=== PATIENT | female | born 1950 | race Caucasian/White ===

== ENCOUNTER → 2023-07-12 11:34 | Outpatient (REF) | payer OTHER, SELFPAY | LOC: HWRAD 11:34 | PROVIDERS: ATTENDING PHYSICIAN Family Medicine | DX: R07.1 Chest pain on breathing (principal); R53.82 Chronic fatigue, unspecified; R19.7 Diarrhea, unspecified | CPT/HCPCS: 74177; Q9967 ==

== ENCOUNTER 2023-07-20 12:28 | Emergency (ER) | payer OTHER, SELFPAY ==
[2023-07-20] VITALS (17 sets, daily range): BP systolic 115–158; BP diastolic 70–99; BMI 31.2
[2023-07-20 13:01] LABS: % Basophils 0.5 % (0-2); % Eosinophils 0.7 % (0-6); % Immature Granulocytes 0.3 % (0-0.5); % Lymphocytes 20.1 % (20.5-51.1); % Monocytes 6.8 % (1.7-9.3); % Neutrophils 71.6 % (42.2-75.2); Absolute Eosinophils 0.1 10^3/uL (0-0.7); Absolute Lymphocytes 1.5 10^3/uL (1.2-3.4); Absolute Monocytes 0.5 10^3/uL (0.1-0.6); Absolute Neutrophils 5.4 10^3/uL (1.4-6.5); Hematocrit 45.7 % (37.0-47.0); Hemoglobin 15.6 g/dL (12.0-16.0); Mean Corp Hgb Conc. 34.1 g/dL (33.0-37.0); Mean Corpuscular Hgb 28.5 pg (27.0-31.0); Mean Corpuscular Volume 83.5 fL (81.0-99.0); Mean Platelet Volume 11.2 fL (7.4-10.4); Nucleated Red Blood Cells % 0 %; Platelet Count 245 10^3/uL (130-400); Red Blood Cell Count 5.47 10^6/uL (4.20-5.40); Red Cell Dist. Width 13.1 % (11.5-14.5); White Blood Cell Count 7.5 10^3/uL (4.8-10.8)
[2023-07-20 13:12] LABS: INR 1.05; PT 13.7 Sec (11.4-14.6)
[2023-07-20 13:18] LABS: ALT (SGPT) 22 U/L (0-35); AST (SGOT) 33 U/L (14-36); Albumin 5.3 g/dl (3.5-5.0); Alkaline Phosphatase 98 U/L (38-126); Blood Urea Nitrogen 12 mg/dl (7-17); Calcium 9.9 mg/dl (8.4-10.2); Carbon Dioxide 25 mmol/L (22-30); Chloride 104 mmol/L (98-107); Glucose 122 mg/dl (70-99); Potassium 3.6 mmol/L (3.5-5.1); Sodium 138 mmol/L (135-145); Total Bilirubin 0.8 mg/dl (0.2-1.3); eGFR > 60.00
[2023-07-20 13:28] LABS: Troponin I < 0.012 ng/ml
[2023-07-20] MEDS: NSS 1000 IV (14:37)
--- NOTE | 2023-07-20 14:50 | ED.GENMED ---
History of Present Illness
<Mayda Prather PA-C - Last Filed: 07/20/23 18:15>
General
Chief Complaint: Heart Rate Problem
Source: patient
Exam Limitations: none
Time Seen by Provider: 07/20/23 14:28
Nursing documentation reviewed up to this point in time: agreed with
Travel History
Have you had any contact with someone who has COVID-19?: No
Do you have any symptoms of coronavirus? Fever > 100 degrees, chills, cough, shortness of breath, sore throat, loss of taste or smell, muscle aches, or headache?: No
History of Present Illness
History of Present Illness:
72 y/o F with h/o htn ,hld [place]
here with elevated HR/palpitatoins that started at 1130 am when she was outside with her dog. she has had diarreha x 2 weeks with fatigue and diarrhea
she had outpatient labs and ct scan which showed some nonspecific findings
her c diff came back positive and her PCP called her in vancomycin. she didn't get to take it yet.
she says her diarrhea, though still present, has not been as severe this week as last week
she does have fatigue but not significant
no cp, sob
she has a stable small brain AVM incidentaly
never had cardiac dysrhythmia.
HAS H/O GRAVES DISEASE AND HAD IODINE TREATMENT TO THYROID AND NOW IS ON SYNTHROID
Past History
<Mayda Prather PA-C - Last Filed: 07/20/23 18:15>
Past History
ED Past Medical History: Fibromyalgia, HTN, Hypercholesterolemia and Hypothyroidism
ED Past Surgical History: Cholecystectomy, Gynecological, Orthopedic and Tonsilectomy
Social History
Tobacco: Former smoker
Alcohol: Occasional
Drug: None
Personal:
Living: with family
Employment: Employed
Review of Systems
<Mayda Prather PA-C - Last Filed: 07/20/23 18:15>
Review of Systems
Allergies reviewed?: Yes
All Other Systems: Not applicable
Phy Exam
<Mayda Prather PA-C - Last Filed: 07/20/23 18:15>
Physical Exam
Physical Exam:
GENERAL: Alert , in no apparent distress
EYE: pupils equal and reactive
NECK: Supple
ENT: o/p clr, mmm.
CARDIAC:tachycardic irregular, no murmur
LUNGS: Clear breath sounds bilaterally, no acute respiratory distress, no wheezes/rales/rhonchi
ABDOMEN: Soft, without focal tenderness, no r/g, no cvat, normal bowel sounds
NEUROLOGICAL: Alert and oriented, no focal neuro deficits
SKIN: Warm and dry, skin intact.
MUSCULOSKELETAL: No edema, well perfused. neg nino's sign
PSYCH: Normal and appropriate interaction.
Scores
<Mayda Prather PA-C - Last Filed: 07/20/23 18:15>
[id number] Score for Afib Stroke Risk
Age in Years (65=0, 65-74=1, >/=75=2): 65-74
Sex (Female=+1): Female
Congestive Heart Failure History (Yes=+1): No
Hypertension History (Yes=+1): Yes
Stroke/TIA/Thromboembolism History (Yes=+2): No
Vascular Disease History (Yes=+1): No
Diabetes Mellitus (Yes=+1): No
Score: 3
Anticoagulation Recommendations: Recommend anticoagulation (as validated in nonvalvular fib)
<Stuart Zhang MD - Last Filed: 07/20/23 17:12>
[id number] Score for Afib Stroke Risk
Score: 3
Anticoagulation Recommendations: Recommend anticoagulation (as validated in nonvalvular fib)
Course
<Mayda Prather PA-C - Last Filed: 07/20/23 18:15>
Orders/Labs/Results
Orders:
Orders
07/20/23 12:44
Electrocardiogram (*1) Urgent
Reason for Study: Tachycardia
EKG- Treatment ONCE
07/20/23 12:50
Complete Blood Count/With Diff Urgent
Comprehensive Metabolic Panel Urgent
Free T4 Urgent
Prothrombin Time Urgent
TSH Reflex To Free T4 Urgent
Comment: ADD ON
Troponin I Urgent
07/20/23 14:36
0.9% Sodium Chloride 1000 ml [Nss] 1,000 ml IV BOLUS
07/20/23 14:43
Diltiazem HCl [Cardizem] 15 mg IV NOW STA
07/20/23 14:54
Vancomycin HCl [Firvanq] 125 mg PO NOW STA
07/20/23 15:30
Add On- LAB Urgent
Tests Added?: tsh reflex t4
07/20/23 16:26
Propofol [Diprivan] 20 ml .ROUTE .STK-MED
07/20/23 16:28
ASA Classification Routine
Propofol [Diprivan] 40 mg IV NOW STA
07/20/23 16:53
EKG [Electrocardiogram (*1)] Urgent
Reason for Study: Other
Other Reason for Exam: cardioversion
07/20/23 16:54
EKG- Treatment ONCE
07/20/23 18:04
Apixaban [Eliquis] 5 mg PO NOW STA
Abnormal Lab Results
07/20/23
12:50
RBC 5.47 H 10^6/uL
(4.20-5.40)
MPV 11.2 H fL
(7.4-10.4)
Lymphocytes % 20.1 L %
(20.5-51.1)
Glucose 122 H mg/dl
(70-99)
Albumin 5.3 H g/dl
(3.5-5.0)
TSH (Reflex) 0.12 L uIU/ml
(0.47-4.68)
07/20/23 12:50
07/20/23 12:50
Vital Signs
Initial and Last Documented VS:
Initial Vital Signs
Temp Pulse Resp BP Pulse Ox
98.7 F 144 18 147/95 99
07/20/23 12:37 07/20/23 12:37 07/20/23 12:37 07/20/23 12:37 07/20/23 12:37
Last Documented Vital Signs
Temp Pulse Resp BP Pulse Ox
98.3 F 74 20 134/76 96
07/20/23 17:25 07/20/23 17:25 07/20/23 17:25 07/20/23 17:25 07/20/23 17:25
<Stuart Zhang MD - Last Filed: 07/20/23 17:12>
Orders/Labs/Results
Orders:
Orders
07/20/23 12:44
Electrocardiogram (*1) Urgent
Reason for Study: Tachycardia
EKG- Treatment ONCE
07/20/23 12:50
Complete Blood Count/With Diff Urgent
Comprehensive Metabolic Panel Urgent
Free T4 Urgent
Prothrombin Time Urgent
TSH Reflex To Free T4 Urgent
Comment: ADD ON
Troponin I Urgent
07/20/23 14:36
0.9% Sodium Chloride 1000 ml [Nss] 1,000 ml IV BOLUS
07/20/23 14:43
Diltiazem HCl [Cardizem] 15 mg IV NOW STA
07/20/23 14:54
Vancomycin HCl [Firvanq] 125 mg PO NOW STA
07/20/23 15:30
Add On- LAB Urgent
Tests Added?: tsh reflex t4
07/20/23 16:26
Propofol [Diprivan] 20 ml .ROUTE .STK-MED
07/20/23 16:28
ASA Classification Routine
Propofol [Diprivan] 40 mg IV NOW STA
07/20/23 16:53
EKG [Electrocardiogram (*1)] Urgent
Reason for Study: Other
Other Reason for Exam: cardioversion
07/20/23 16:54
EKG- Treatment ONCE
07/20/23 18:04
Apixaban [Eliquis] 5 mg PO NOW STA
Abnormal Lab Results
07/20/23
12:50
RBC 5.47 H 10^6/uL
(4.20-5.40)
MPV 11.2 H fL
(7.4-10.4)
Lymphocytes % 20.1 L %
(20.5-51.1)
Glucose 122 H mg/dl
(70-99)
Albumin 5.3 H g/dl
(3.5-5.0)
TSH (Reflex) 0.12 L uIU/ml
(0.47-4.68)
07/20/23 12:50
07/20/23 12:50
Vital Signs
Initial and Last Documented VS:
Initial Vital Signs
Temp Pulse Resp BP Pulse Ox
98.7 F 144 18 147/95 99
07/20/23 12:37 07/20/23 12:37 07/20/23 12:37 07/20/23 12:37 07/20/23 12:37
Last Documented Vital Signs
Temp Pulse Resp BP Pulse Ox
98.3 F 74 20 134/76 96
07/20/23 17:25 07/20/23 17:25 07/20/23 17:25 07/20/23 17:25 07/20/23 17:25
<Stuart Zhang MD - Last Filed: 07/20/23 17:12>
Cardioversion
Indication:: Afib
Performed by:: Stuart Zhang MD; Mayda Prather PA-C
Synchronized?: Yes
Energy Used: Other (200J/300J)
Number of attempts: 2
Successful?: Yes
Complications: transient hypoxia requiring repositioning only
ASA Risk Score: Class II
Any reaction or bad outcome to prior sedation/anesthesia?: No history of a reaction
Sedation level to be attained: moderate
Chart and allergies reviewed: No
Patient reassessed prior to sedation: Yes
Time out completed at (validating right patient & procedure): 16:54
History of difficult intubation: No
Airway free of obstruction: Yes
Patient has a gag reflex: Yes
Patient is able to open mouth: Yes
Patient has no dentures: No (has dentures, removed)
Patient has no loose teeth: Yes
Medication administered by Provider during Moderate Sedation: IV Propofol (mg)
Total dose administered: 100
Time drug administered: 16:54
Start Time: 16:54
Stop Time: 17:09
<Mayda Prather PA-C - Last Filed: 07/20/23 18:15>
MDM/Problems Addressed
Differential Diagnosis Includes:
afib with RVR, hyperthyroid,, dehydration
MDM/Problems Addressed:
72 y/o F with h/o recently diagnosed c diff diarrhea
here with rapid HR and palpiation s at 1130 am suddenly today
had no chest pain but just a litlte tiughtness
never had this before
no syncope
has not had as much volume diarrhea this past few days
didn't start oral vanc yet
on exam well appearing
stable bp
hr 140s
no crackles
nontender abdomen
ekg looks like rapid a fib no ischemia
trop neg
blood work reassuring, tsh appreciated, slightly over corrected; t4 norm[place]
pt will drop down to 125 mcg daily instead of 125 x 5 days and 137 x 2 days
discussed with cardiology
chadsvasc2 is [address] bland recommended cardioversion an danticoagulation if pt agreeeable
she was consented and dr. zhang ran the sedation and cardioversion
2 attempts and successful
pt woke from sedation withotu difficulty
tolerated well
eliquis given
d/c home with precatuions
return if needed
<Mayda Prather PA-C - Last Filed: 07/20/23 18:15>
*Critical Care Note
Total Time (30-74mins, 75-104mins- exclusive of procedures): Not Applicable
ED Attending Note
<Mayda Prather PA-C - Last Filed: 07/20/23 18:15>
-
Portions of this chart may have been created with voice recognition software.� Occasional wrong word or��sound alike� substitutions may have occurred due to the inherent limitations of voice recognition software.
<Stuart Zhang MD - Last Filed: 07/20/23 17:12>
ED Attending Note
Patient seen and examined by attending physician: Yes
ED Attending Note:
I have seen and evaluated the patient with a [id number] encounter. I have spoken to the advance practicer provider and involved in the medical history, the physical exam, medical decision making.
Evaluation and management service: agree unless noted differently below.
Results interpretation: agree unless noted differently below.
Focused HPI: 72-year-old female with history as documented presents for evaluation of palpitations; she notably has been dealing with diarrhea recently diagnosed with C. difficile and prescribed oral vancomycin yesterday. Started with racing in her
chest earlier today and symptoms have been constant since then. No chest pain, shortness of breath. EKG on arrival shows A-fib with RVR. No history of A-fib.
Physical exam: Tachycardia with irregular regular rhythm. Normotension. Mucous membranes slightly dry
Medical Decision Makin-year-old female presents for palpitations that started today in the setting of recent significant diarrhea and C. difficile infection. Tachycardic but normotensive otherwise normal vitals. She does appear slightly dry.
She was given 1 L of normal saline without significant improvement in her heart rate; she was given Cardizem with transient improvement but heart rate increased once again in the 140s. Case was discussed with cardiology and given clear onset of
symptoms despite lack of anticoagulation they felt comfortable with ED cardioversion. Discussed risk and benefits with patient and she was agreeable to the procedure. She was successfully cardioverted as documented procedure note. Will continue
to monitor after sedation and if she remains asymptomatic in sinus rhythm we will discharge with outpatient cardiology referral; patient to be started on Eliquis.
Discharge Plan
Departure
Patient Disposition: Home (Routine Discharge)
Date of Disposition: 07/20/23
Time of Disposition: 18:03
Patient with high blood pressure during this ER visit?: No
Condition: Fair
Covid-19: Not Applicable
Discharge Problem:
Atrial fibrillation with rapid ventricular response, C. difficile diarrhea
Instructions: Atrial Fibrillation (DC), Moderate Sedation in Adults (DC)
Prescriptions:
New
Eliquis 5 mg tablet
5 mg PO BID Qty: 60 0RF
No Action
levothyroxine 125 MCG tablet
125 mcg PO DAILY
citalopram 20 MG tablet
20 mg PO DAILY
amlodipine 10 MG tablet
10 mg PO DAILY
fluticasone propionate 1 SPRAY spray,suspension
1 spray intranasal DAILYPRN PRN (Reason: allergies)
rosuvastatin 10 MG tablet
10 mg PO QPM
budesonide-formoterol [Symbicort] 80-4.5 mcg/actuation Hfa Aerosol Inhaler
1 inh INHALATION PRN PRN (Reason: allergies)
mupirocin 2 % ointment
1 applic topical BID Qty: 1 0RF
aspirin 325 mg Tablet
325 mg PO DAILY Qty: 1 0RF
docusate sodium 100 mg Capsule
100 mg PO BID Qty: 1 0RF
celecoxib 200 mg Capsule
200 mg PO DAILY Qty: 14 0RF
Rx Instructions:
take with food
sennosides [senna] 8.6 mg Tablet
17.2 mg PO BID Qty: 2 0RF
dexamethasone 4 mg tablet
4 mg PO BID Qty: 6 0RF
Rx Instructions:
take with food
famotidine 20 mg tablet
20 mg PO HS Qty: 30 0RF
hydrocodone-acetaminophen 5-325 mg tablet
1 tab PO Q6H PRN (Reason: 1 tab moderate pain or 2 if severe) Qty: 30 0RF
Rx Instructions:
Dx orthopedic surgery
ongoing therapy
diazepam [Valium] 2 mg tablet
2 mg PO HS Qty: 10 0RF
Rx Instructions:
may take additional tablet if unrelieved with 1 tab
lisinopril 20 MG tablet
40 mg PO DAILY Qty: 1 0RF
Rx Instructions:
hold systolic blood pressure <130 if taking [place]
Referrals:
Don Aponte MD [Active] - Follow up in 1 week
Shana Proctor DO [Family Provider] - Follow up in 2-3 days
Activity Restrictions/Additional Instructions:
YOU HAD AN ABNORMAL HEART RHYTHM CALLED ATRIAL FIBRILLATION
YOU HAD CARDIOVERSION TO SHOCK YOUR HEART OUT OF THIS ABNORMAL RHYTHM
FOR NOW YOU NEED TO TAKE ELIQUIS TWICE A DAY
FOLLOW UP WITH DR. APONTE'S OFFICE NEXT WEEK
CALLFOR AN APPOINTMENT, TELL THEM YOU WERE IN ATRIAL FIBRILLATION AND HAD CARDIOVERSION IN THE ER
ALSO TAKE YOUR VANCOMYCIN INSTRUCTED
IF YOU START HAVING BLEEDING OR FALL AND HIT YOUR HEAD OR HAVE ANY SIGNIFICANT TRAUMA, YOU SHOULD COME TO THE ER IMMEDIATELY
RETURN FO RANY CONCERNS.
REDUCE YOUR SYNTHROID TO 125 FOR NOW AND CALL YOUR DOCTOR ABOUT REPEATING YOUR TSH
Interventions
Interventions:
*Risk Screen - Suicide Last Done: 07/20/23 14:23
*General Assessment Last Done: 07/20/23 14:23
*Neglect/Abuse Screening Last Done: 07/20/23 14:23
ED- Fall Risk Assessment Last Done: 07/20/23 14:23
*ED COVID-19 Vaccine History Last Done: 07/20/23 14:23
ED- Cardiac Assessment Last Done: 07/20/23 14:23
ED- Pulmonary Assessment Last Done: 07/20/23 14:23
[2023-07-20] MEDS: CARDIZEM 15 MG IV (14:56)
[2023-07-20] MEDS: FIRVANQ 125 MG PO (15:22)
[2023-07-20 16:57] LABS: TSH Reflex To Free T4 0.12 uIU/ml (0.47-4.68)
[2023-07-20] MEDS: DIPRIVAN 40 MG IV (17:32)
[2023-07-20 18:00] LABS: Free T4 1.74 ng/dl (0.78-2.19)
[2023-07-20] MEDS: ELIQUIS 5 MG PO (18:22)
== END 2023-07-20 19:07 | disposition home or self-care (01) ==
LOC: EMR 12:28
PROVIDERS: Emergency Medicine; EMERGENCY PHYSICIAN Emergency Medicine; FAMILY PHYSICIAN Family Medicine
DX: I48.91 Unspecified atrial fibrillation (principal); A04.72 Enterocolitis due to Clostridium difficile, not specified as recurrent; R19.7 Diarrhea, unspecified; I10 Essential (primary) hypertension; E78.00 Pure hypercholesterolemia, unspecified; I25.2 Old myocardial infarction; R53.83 Other fatigue; M79.7 Fibromyalgia; E03.9 Hypothyroidism, unspecified; Z79.01 Long term (current) use of anticoagulants; Z79.890 Hormone replacement therapy; Z87.891 Personal history of nicotine dependence; Z90.49 Acquired absence of other specified parts of digestive tract
CPT/HCPCS: 99283; 96374; 96375; 96361; 80053; 84439; 84443; 84484; 85025; 85610; 93005

== ENCOUNTER 2023-08-09 09:08 | Emergency (ER) | payer OTHER, SELFPAY ==
[2023-08-09 09:12] VITALS: BP 145/99
[2023-08-09 09:40] LABS: % Basophils 0.2 % (0-2); % Eosinophils 0.2 % (0-6); % Lymphocytes 16.3 % (20.5-51.1); % Monocytes 8.5 % (1.7-9.3); % Neutrophils 74.8 % (42.2-75.2); Absolute Lymphocytes 0.8 10^3/uL (1.2-3.4); Absolute Monocytes 0.4 10^3/uL (0.1-0.6); Absolute Neutrophils 3.9 10^3/uL (1.4-6.5); Hematocrit 43.6 % (37.0-47.0); Mean Corp Hgb Conc. 34.4 g/dL (33.0-37.0); Mean Corpuscular Volume 84.3 fL (81.0-99.0); Mean Platelet Volume 10.8 fL (7.4-10.4); Nucleated Red Blood Cells % 0 %; Platelet Count 209 10^3/uL (130-400); Red Blood Cell Count 5.17 10^6/uL (4.20-5.40); Red Cell Dist. Width 13.1 % (11.5-14.5); White Blood Cell Count 5.2 10^3/uL (4.8-10.8)
[2023-08-09 09:41] LABS: Urine Albumin Negative (Neg - Trace); Urine Bilirubin Negative (Negative); Urine Character Clear (Clear); Urine Color Yellow; Urine Glucose Negative (Negative); Urine Ketone Negative (Negative); Urine Leukocyte 1+ (Negative); Urine Nitrite Negative (Negative); Urine Occult Blood Trace (Negative); Urine Specific Gravity 1.015 (<1.030); Urine Urobilinogen Negative (Neg - 1+)
--- NOTE | 2023-08-09 09:45 | ED.GENMED ---
History of Present Illness
General
Chief Complaint: Blood Pressure Problem
Source: patient and records
Exam Limitations: none
Time Seen by Provider: 08/09/23 09:36
Nursing documentation reviewed up to this point in time: agreed with
Travel History
Have you had any contact with someone who has COVID-19?: No
Do you have any symptoms of coronavirus? Fever > 100 degrees, chills, cough, shortness of breath, sore throat, loss of taste or smell, muscle aches, or headache?: No
History of Present Illness
History of Present Illness:
72-year-old female with a past medical history of hypertension, hyperlipidemia, asthma, migraines, A-fib on Xarelto who presents to the emergency room for evaluation of diarrhea and palpitations. Patient was seen in the emergency room diagnosed
with A-fib and cardioverted 07/20/2023. Initially was started on Eliquis but was having some dizziness and was switched to Xarelto which seemed to help with that. Has been dealing with C. difficile infection and had been on oral vancomycin until
07/28 which was the last day of her course; she said diarrhea improved after completion of oral vancomycin. She says that last week she had some hematuria earlier in the week and was seen by her primary doctor and started on Bactrim for UTI.
Hematuria improved she no longer has hematuria and does not have any dysuria or change in frequency. Over the past few days however she says that she has noticed that she is feeling a bit more weak and shaky. She says that her blood pressure has
been running higher�she says that it is spiked as high as 200. She says that yesterday morning she started having diarrhea once again�she describes voluminous liquid stool nonbloody. Diarrhea continued today and she is concerned that she has C.
difficile once again. Came to the emergency room for assessment. She has had occasional palpitations. No chest pain. No shortness of breath. No nausea or vomiting. No abdominal pain. No fevers or chills. She denies any other complaints. She
does have an appointment scheduled with gastroenterology regarding her C. difficile on 08/24/2023.
Past History
Past History
ED Past Medical History: Fibromyalgia, HTN, Hypercholesterolemia and Hypothyroidism
ED Past Surgical History: Cholecystectomy, Gynecological, Orthopedic and Tonsilectomy
Social History
Tobacco: Former smoker
Alcohol: Occasional
Drug: None
Personal:
Living: with family
Employment: Employed
Review of Systems
Review of Systems
All Other Systems: ROS reviewed and negative except as documented in HPI and ROS
Constitutional: Reports fatigue; Denies fever or chills
EENT: Denies sore throat or runny nose
Respiratory: Denies cough or trouble breathing
Cardiac: Reports palpitations; Denies chest pain
ABD/GI: Reports diarrhea; Denies abdominal pain, nausea or vomiting
: Reports bleeding (Hematuria, resolved); Denies dysuria, frequency or flank pain
Musculoskeletal: Denies neck pain or back pain
Neurological: Denies headache, weakness or numbness
Phy Exam
Physical Exam
Physical Exam:
General: Awake, alert, oriented x3; anxious but no acute distress
Head: Normocephalic, atraumatic
Eyes: Conjunctiva normal, sclera anicteric
Throat: Airway intact, handling secretions
Neck: Trachea midline, supple without meningismus
Lungs: Clear to auscultation bilaterally, no wheezing, rales, rhonchi
Heart: Regular rate and rhythm, no murmurs, gallops, or rubs
Abd: Soft, non distended, nontender with no abdominal masses
Neuro: Cranial nerves grossly intact, speech fluid
Skin: no rash
Extremities: No edema in extremities, equal pulses in all extremities
Scores
Heart Failure Risk
Heart Failure Risk Score: Not Applicable
Heart Score for Chest Pain Patients
STEMI patient?: Not applicable
Withdrawal Assessment of Alcohol
Withdrawal Assessment Completed?: Not applicable
Course
Orders/Labs/Results
Orders:
Orders
08/09/23 09:15
Electrocardiogram (*1) Urgent
Reason for Study: Abdominal Pain
EKG- Treatment ONCE
08/09/23 09:25
Complete Blood Count/With Diff Urgent
Comprehensive Metabolic Panel Urgent
Lipase Urgent
TSH Reflex To Free T4 Urgent
Urinalysis Reflex To Culture Urgent
Date Specimen was Collected: 08/09/23
Time Specimen was Collected: 09:15
Urine Microscopic Reflex Cult Urgent
Urine Culture Urgent
MITCH Source: U
Specimen Description:
Date Specimen was Collected: 08/09/23
Time Specimen was Collected: 09:15
08/09/23 09:33
STOOL [C difficile Antigen & Toxins] Urgent
MITCH Source: Feces/Stool
Specimen Description:
Stool Culture Urgent
MITCH Source: Feces/Stool
Specimen Description:
08/09/23 09:48
Add On- LAB Urgent
Tests Added?: TSH reflex to free T4
08/09/23 10:00
COVID-19 Antigen Urgent
Source: Nasal Swab
Influenza A+B Rapid Molecular Urgent
MITCH Source: Nasal Swab
Specimen Description:
08/09/23 11:39
Lisinopril [Zestril] 40 mg PO NOW STA
Abnormal Lab Results
08/09/23
09:25
MPV 10.8 H fL
(7.4-10.4)
Absolute Lymphs (auto) 0.8 L 10^3/uL
(1.2-3.4)
Lymphocytes % 16.3 L %
(20.5-51.1)
Glucose 108 H mg/dl
(70-99)
Ur Occult Blood Reflex Trace A
(Negative)
Leukocyte Esterase Rfl 1+ A
(Negative)
Urine Bacteria (Reflex) Few A
(Negative)
08/09/23 09:25
08/09/23 09:25
Vital Signs
Initial and Last Documented VS:
Initial Vital Signs
Temp Pulse Resp BP Pulse Ox
36.8 C 82 16 145/99 98
08/09/23 09:12 08/09/23 09:12 08/09/23 09:12 08/09/23 09:12 08/09/23 09:12
Last Documented Vital Signs
Temp Pulse Resp BP Pulse Ox
36.8 C 82 16 157/67 98
08/09/23 09:12 08/09/23 09:12 08/09/23 09:12 08/09/23 12:27 08/09/23 11:00
MDM/Problems Addressed
Differential Diagnosis Includes:
Diarrhea: Viral syndrome, recurrent C. difficile, side effect of antibiotics (Bactrim)
Palpitations: Intermittent A-fib, PACs/PVCs, anxiety
Shakiness/malaise: Viral syndrome, dehydration, electrolyte derangement, anemia, anxiety
MDM/Problems Addressed:
72-year-old female with history as above presents for evaluation of diarrhea, palpitations and generally feeling unwell. She has a recent history of C. difficile completed a course of oral vancomycin 07/28. She was also recently diagnosed with
A-fib which is new onset, was started on Eliquis. She last week was diagnosed with a UTI after an episode of hematuria and has been on Bactrim for this. Started to feel unwell the past few days, increasing palpitations and now having some diarrhea
over the past 48 hours. Vital signs are normal. Exam as above. Plan to place an IV check labs including a CBC and a CMP, thyroid studies, urinalysis. Will check viral swabs. Check an EKG. Will check stool studies. Provide some fluids.
Monitor closely reassess after the above.
Labs reviewed: CBC unremarkable, CMP no clinically significant abnormalities. Thyroid studies normal. She is feeling better after fluids she is she feels very diarrhea she is concerned she has C. difficile again. She was not able to give us a
stool sample here. Urinalysis shows no signs of infection and she has actually no urinary symptoms that she had some hematuria but only lasted for a day or 2 and then resolved. In light of her diarrhea I told her to discontinue Bactrim. She also
recently reintroduced some fatty foods in her diet after more bland diet while she was having diarrhea; this could also contribute somewhat to her loose stools over the past 48 hours. I think I would hold on treating empirically for C. difficile at
this point with only a few loose stools over the past 48 hours but I did send her with a prescription for stool studies and she has GI follow-up scheduled. I think at this point she is medically stable for discharge and can follow-up as an
outpatient with her primary doctor as well as gastroenterology. She feels comfortable with this plan. Spoke about return precautions all questions answered.
Chronic conditions affecting care:
Atrial fibrillation
Acute Exacerbation and/or Progression of Chronic Illness:
Acutely hypertensive treated with home blood pressure medication
Acute Exacerbation and/or Progression of Chronic Illness: HTN
*Pulse Oximetry
Patient hypoxic: no
*EKG
Interpreted by ED Provider?: Yes
Comparison EKG: no changes
Heart Rate: 74
Rate: normal
Rhythm: sinus
[place]: normal axis
Interval: normal interval
QRS Pattern: normal QRS
Ischemia: no ischemia
*Critical Care Note
Total Time (30-74mins, 75-104mins- exclusive of procedures): Not Applicable
Data Reviewed
Review of Other/Old Records Reveals: Labs and Records
Source: patient and records
ED Attending Note
-
Portions of this chart may have been created with voice recognition software.� Occasional wrong word or��sound alike� substitutions may have occurred due to the inherent limitations of voice recognition software.
Discharge Plan
Departure
Patient Disposition: Home (Routine Discharge)
Date of Disposition: 08/09/23
Time of Disposition: 13:18
Patient with high blood pressure during this ER visit?: Yes
Discharge Problem:
Diarrhea, Heart palpitations, Hypertension
Instructions: Acute Diarrhea, BLOOD PRESSURE, Heart Palpitations
Prescriptions:
No Action
levothyroxine 125 MCG tablet
125 mcg PO DAILY
citalopram 20 MG tablet
20 mg PO DAILY
amlodipine 10 MG tablet
10 mg PO DAILY
fluticasone propionate 1 SPRAY spray,suspension
1 spray intranasal DAILYPRN PRN (Reason: allergies)
rosuvastatin 10 MG tablet
10 mg PO QPM
budesonide-formoterol [Symbicort] 80-4.5 mcg/actuation Hfa Aerosol Inhaler
1 inh INHALATION PRN PRN (Reason: allergies)
mupirocin 2 % ointment
1 applic topical BID Qty: 1 0RF
aspirin 325 mg Tablet
325 mg PO DAILY Qty: 1 0RF
docusate sodium 100 mg Capsule
100 mg PO BID Qty: 1 0RF
celecoxib 200 mg Capsule
200 mg PO DAILY Qty: 14 0RF
Rx Instructions:
take with food
sennosides [senna] 8.6 mg Tablet
17.2 mg PO BID Qty: 2 0RF
dexamethasone 4 mg tablet
4 mg PO BID Qty: 6 0RF
Rx Instructions:
take with food
famotidine 20 mg tablet
20 mg PO HS Qty: 30 0RF
hydrocodone-acetaminophen 5-325 mg tablet
1 tab PO Q6H PRN (Reason: 1 tab moderate pain or 2 if severe) Qty: 30 0RF
Rx Instructions:
Dx orthopedic surgery
ongoing therapy
diazepam [Valium] 2 mg tablet
2 mg PO HS Qty: 10 0RF
Rx Instructions:
may take additional tablet if unrelieved with 1 tab
lisinopril 20 MG tablet
40 mg PO DAILY Qty: 1 0RF
Rx Instructions:
hold systolic blood pressure <130 if taking [place]
Eliquis 5 mg tablet
5 mg PO BID Qty: 60 0RF
Referrals:
Deana Pulido MD [Active] - 08/24/23
Shana Proctor DO [Family Provider] - Call in 1-3 days for appt
Activity Restrictions/Additional Instructions:
Thank you for visiting the Emergency Department at [facility].
1. Please schedule a follow up appointment as directed. Call first thing tomorrow morning to make an appointment.
2. If indicated, please take your medications as instructed and indicated on discharge paperwork.
3. If any of your symptoms do not improve, or persist, or become more severe within 6-12 hours, please return to the emergency department for further care.
4. Please return to the emergency department if you develop a headache, neck pain/stiffness, fever greater than 100.4F, chest pain, shortness of breath, persistent nausea, vomiting, slurred speech, difficulty walking, numbness/tingling, weakness,
signs of infection or any other symptoms that are worrisome to you.
Please call [phone] if you have any questions.
Interventions
Interventions:
*Risk Screen - Suicide Last Done: 08/09/23 09:12
*General Assessment Last Done: 08/09/23 09:12
*Neglect/Abuse Screening Last Done: 08/09/23 09:12
*ED COVID-19 Vaccine History Last Done: 08/09/23 09:53
ED- Cardiac Assessment Last Done: 08/09/23 09:59
ED- Neurological Assessment Last Done: 08/09/23 09:54
ED- Pulmonary Assessment Last Done: 08/09/23 09:54
Discharge Date and Time
Print Language: CYPRIOT
[2023-08-09 09:53] VITALS: BMI 31.8
[2023-08-09 09:55] LABS: ALT (SGPT) 33 U/L (0-35); AST (SGOT) 34 U/L (14-36); Alkaline Phosphatase 93 U/L (38-126); Blood Urea Nitrogen 8 mg/dl (7-17); Calcium 9.9 mg/dl (8.4-10.2); Carbon Dioxide 24 mmol/L (22-30); Chloride 103 mmol/L (98-107); Estimated Creatinine Clearance 74 ml/min; Glucose 108 mg/dl (70-99); Lipase 63 U/L (23-300); Potassium 4.4 mmol/L (3.5-5.1); Sodium 135 mmol/L (135-145); Total Bilirubin 0.8 mg/dl (0.2-1.3); Total Protein 7.5 g/dl (6.3-8.2); eGFR > 60.00
[2023-08-09 09:56] VITALS: BP 151/74
[2023-08-09 10:00] VITALS: BP 154/69
[2023-08-09 10:24] LABS: Urine Mucus Few
[2023-08-09 10:25] LABS: Urine Amorphous Seen; Urine Red Blood Cell 0-2 /HPF (0-2); Urine Squamous Cell 26-30 /LPF (Few); Urine Urothelial Cell 0-2 /LPF (FEW)
[2023-08-09 10:26] LABS: Urine Bacteria Few (Negative)
[2023-08-09 10:39] LABS: COVID-19 Antigen Negative (Negative)
[2023-08-09 11:00] VITALS: BP 162/76
[2023-08-09 11:12] LABS: TSH Reflex To Free T4 1.94 uIU/ml (0.47-4.68)
[2023-08-09 12:00] VITALS: BP 157/67
[2023-08-09] MEDS: ZESTRIL 40 MG PO (12:27)
[2023-08-09 13:50] VITALS: BP 138/84
== END 2023-08-09 13:50 | disposition home or self-care (01) ==
LOC: EMR 09:08
PROVIDERS: EMERGENCY PHYSICIAN Emergency Medicine; FAMILY PHYSICIAN Family Medicine
DX: R19.7 Diarrhea, unspecified (principal); R00.2 Palpitations; R31.9 Hematuria, unspecified; I10 Essential (primary) hypertension; Z11.52 Encounter for screening for COVID-19; Z79.01 Long term (current) use of anticoagulants; Z87.891 Personal history of nicotine dependence
CPT/HCPCS: 99284; 80053; 81003; 81015; 83690; 84443; 85025; 87086; 87502; 87811; 93005

== ENCOUNTER → 2023-08-18 09:10 | Outpatient (REF) | payer OTHER, SELFPAY | LOC: DHCBC HW 09:10 | PROVIDERS: ATTENDING PHYSICIAN Nurse Practitioner; FAMILY PHYSICIAN Family Medicine | DX: I10 Essential (primary) hypertension (principal); I48.0 Paroxysmal atrial fibrillation; I34.0 Nonrheumatic mitral (valve) insufficiency | CPT/HCPCS: 93306 ==

== ENCOUNTER → 2023-09-16 13:51 | Outpatient (REF) | payer OTHER, SELFPAY | LOC: WDC 13:51 | PROVIDERS: ATTENDING PHYSICIAN Family Medicine | DX: Z12.31 Encounter for screening mammogram for malignant neoplasm of breast (principal) | CPT/HCPCS: 77063; 77067 ==

== ENCOUNTER → 2023-09-27 06:30 | Day surgery (SDC) | payer OTHER, SELFPAY | LOC: GI 06:30 | PROVIDERS: ATTENDING PHYSICIAN Internal Medicine Gastroenterology | DX: R19.4 Change in bowel habit (principal); K64.8 Other hemorrhoids; K57.30 Diverticulosis of large intestine without perforation or abscess without bleeding; D12.4 Benign neoplasm of descending colon | CPT/HCPCS: 45385; 45380; 88305 ==

== ENCOUNTER → 2023-10-31 15:38 | Outpatient (REF) | payer OTHER, SELFPAY | LOC: RAD 15:38 | PROVIDERS: ATTENDING PHYSICIAN Family Medicine | DX: M25.551 Pain in right hip (principal); M25.552 Pain in left hip | CPT/HCPCS: 73522 ==

== ENCOUNTER → 2023-11-23 18:31 | Outpatient (REF) | payer OTHER, SELFPAY | LOC: MRI 3T 18:31 | PROVIDERS: ATTENDING PHYSICIAN Family Medicine | DX: Q28.2 Arteriovenous malformation of cerebral vessels (principal); R42 Dizziness and giddiness | CPT/HCPCS: 70546; 70553; A9585 ==

== ENCOUNTER → 2024-09-27 13:10 | Outpatient (REF) | payer OTHER, SELFPAY | LOC: WDC 13:10 | PROVIDERS: ATTENDING PHYSICIAN Family Medicine | DX: Z12.31 Encounter for screening mammogram for malignant neoplasm of breast (principal) | CPT/HCPCS: 77063; 77067 ==

== ENCOUNTER 2024-10-01 12:04 | Emergency (ER) | payer OTHER, SELFPAY ==
[2024-10-01 12:11] VITALS: BP 159/106
[2024-10-01 13:15] VITALS: BMI 31.9
[2024-10-01 13:23] VITALS: BP 183/89
--- NOTE | 2024-10-01 13:23 | EDRN ---
Nikole Ho INTAKE COORDINATOR in room w/pt at this time.
--- NOTE | 2024-10-01 13:34 | ED.GENMED ---
History of Present Illness
<DILSHAD Contreras - Last Filed: 10/01/24 16:40>
General
Chief Complaint: Abdominal Symptoms
Source: patient
Exam Limitations: none
Time Seen by Provider: 10/01/24 13:04
Nursing documentation reviewed up to this point in time: agreed with
History of Present Illness
History of Present Illness:
74 yr old female with past medical history of A-fib on Eliquis hypertension presents to the ER for evaluation. Last week she started with UTI symptoms. She saw her family doctor was started on Bactrim however on Tuesday 2 days ago she started
with nausea lightheadedness dizziness and vomiting. She thought it was related to Bactrim and her family doctor stopped her Bactrim and started her Macrobid. Despite that she had a lot of nausea and vomiting with dry heaves and Tuesday night and
yesterday continued to feel very nauseous weak and lightheaded and then started with diarrhea. Today she continues to feel nauseous and weak she also had an episode of chest tightness around 7 and this morning.
No other sick contacts. She denies any recent fever chills or weakness
Past History
<DILSHAD Contreras - Last Filed: 10/01/24 16:40>
Past History
ED Past Medical History: Fibromyalgia, HTN, Hypercholesterolemia and Hypothyroidism
ED Past Surgical History: Cholecystectomy, Gynecological, Orthopedic and Tonsilectomy
Social History
Tobacco: Former smoker
Alcohol: Occasional
Drug: None
Personal:
Living: with family
Employment: Employed
Review of Systems
<DILSHAD Contreras - Last Filed: 10/01/24 16:40>
Review of Systems
Allergies reviewed?: Yes
All Other Systems: ROS reviewed and negative except as documented in HPI and ROS
Constitutional: Reports fatigue; Denies fever or chills
EENT: Reports no symptoms
Respiratory: Reports no symptoms
Cardiac: Reports no symptoms
ABD/GI: Reports nausea, vomiting and diarrhea
: Reports no symptoms
Musculoskeletal: Reports no symptoms
Skin: Reports no symptoms
Neurological: Reports no symptoms
Psychiatric: Reports no symptoms
Phy Exam
<DILSHAD Contreras - Last Filed: 10/01/24 16:40>
General Physical Exam
General Presentation: no apparent distress
General age: appears stated age
General Skin: warm and dry
General Habitus: normal
General Mental: alert
General Hydration: dry mucous membranes
Cardiovascular Exam
Cardiovascular Exam: regular rate/rhythm, no murmur and normal peripheral pulses
Pulmonary Exam
Pulmonary Exam: lungs clear and no respiratory distress
Neurological Exam
Neurological Exam: alert and oriented x3
Musculoskeletal Exam
Musculoskeletal Exam: full ROM
Skin Exam
Skin Exam: normal color and warm/dry
Psychiatric Exam
Psychiatric Exam: normal mood/affect
Course
<DILSHAD Contreras - Last Filed: 10/01/24 16:40>
Orders/Labs/Results
Orders:
Orders
10/01/24 12:05
ECG [Electrocardiogram (*1)] Urgent
Reason for Study: Chest Pain
10/01/24 12:06
EKG- Treatment ONCE
10/01/24 13:25
Cardiac Monitoring- Treatment ONCE
IV Insert/Care/Rem.- Treatment PRN
10/01/24 13:35
Complete Blood Count/With Diff Urgent
Comprehensive Metabolic Panel Urgent
Troponin I Urgent
Urinalysis Reflex To Culture Urgent
Date Specimen was Collected: 10/01/24
Time Specimen was Collected: 13:26
Urine Microscopic Reflex Cult Urgent
Urine Culture Urgent
MITCH Source: U
Specimen Description:
Date Specimen was Collected: 10/01/24
Time Specimen was Collected: 13:26
10/01/24 13:38
COVID-19 Antigen Urgent
Source: Nasal Swab
Influenza A+B Rapid Molecular Urgent
MITCH Source: Nasal Swab
Specimen Description:
10/01/24 13:51
0.9% Sodium Chloride 1000 ml [Nss] 1,000 ml IV BOLUS
Acetaminophen [Tylenol] 1,000 mg PO NOW STA
Ondansetron Injectable [Zofran] 4 mg IV NOW STA
10/01/24 15:10
Electrocardiogram (*1) Stat
Reason for Study: Other
Other Reason for Exam: chest pain
EKG- Treatment ONCE
10/01/24 15:21
Troponin I Urgent
Abnormal Lab Results
10/01/24
13:35
MPV 11.7 H fL
(7.4-10.4)
Absolute Lymphs (auto) 1.0 L 10^3/uL
(1.2-3.4)
Lymphocytes % 18.3 L %
(20.5-51.1)
Monocytes % 11.1 H %
(1.7-9.3)
Glucose 103 H mg/dl
(70-99)
Urine Ketones 1+ A
(Negative)
Ur Occult Blood Reflex 1+ A
(Negative)
Leukocyte Esterase Rfl 2+ A
(Negative)
Urine RBC 3-6 A /HPF
(0-2)
Urine Bacteria (Reflex) Few A
(Negative)
Urine Albumin (Reflex) 1+ A
(Neg - Trace)
10/01/24 13:35
10/01/24 13:35
Vital Signs
Initial and Last Documented VS:
Initial Vital Signs
Temp Pulse Resp BP Pulse Ox
97.4 F 63 18 159/106 99
10/01/24 12:11 10/01/24 12:11 10/01/24 12:11 10/01/24 12:11 10/01/24 12:11
Last Documented Vital Signs
Temp Pulse Resp BP Pulse Ox
97.4 F 57 24 132/70 98
10/01/24 12:11 10/01/24 16:00 10/01/24 15:45 10/01/24 16:00 10/01/24 16:00
Paving Rammer consulted with Physician
Paving Rammer consulted with physician?: Yes
Name of Physician Consulted: Hugo
<Valeriy Arias, DO - Last Filed: 10/01/24 15:09>
Orders/Labs/Results
Orders:
Orders
10/01/24 12:05
ECG [Electrocardiogram (*1)] Urgent
Reason for Study: Chest Pain
10/01/24 12:06
EKG- Treatment ONCE
10/01/24 13:25
Cardiac Monitoring- Treatment ONCE
IV Insert/Care/Rem.- Treatment PRN
10/01/24 13:35
Complete Blood Count/With Diff Urgent
Comprehensive Metabolic Panel Urgent
Troponin I Urgent
Urinalysis Reflex To Culture Urgent
Date Specimen was Collected: 10/01/24
Time Specimen was Collected: 13:26
Urine Microscopic Reflex Cult Urgent
Urine Culture Urgent
MITCH Source: U
Specimen Description:
Date Specimen was Collected: 10/01/24
Time Specimen was Collected: 13:26
10/01/24 13:38
COVID-19 Antigen Urgent
Source: Nasal Swab
Influenza A+B Rapid Molecular Urgent
MITCH Source: Nasal Swab
Specimen Description:
10/01/24 13:51
0.9% Sodium Chloride 1000 ml [Nss] 1,000 ml IV BOLUS
Acetaminophen [Tylenol] 1,000 mg PO NOW STA
Ondansetron Injectable [Zofran] 4 mg IV NOW STA
10/01/24 15:10
Electrocardiogram (*1) Stat
Reason for Study: Other
Other Reason for Exam: chest pain
EKG- Treatment ONCE
10/01/24 15:21
Troponin I Urgent
Abnormal Lab Results
10/01/24
13:35
MPV 11.7 H fL
(7.4-10.4)
Absolute Lymphs (auto) 1.0 L 10^3/uL
(1.2-3.4)
Lymphocytes % 18.3 L %
(20.5-51.1)
Monocytes % 11.1 H %
(1.7-9.3)
Glucose 103 H mg/dl
(70-99)
Urine Ketones 1+ A
(Negative)
Ur Occult Blood Reflex 1+ A
(Negative)
Leukocyte Esterase Rfl 2+ A
(Negative)
Urine RBC 3-6 A /HPF
(0-2)
Urine Bacteria (Reflex) Few A
(Negative)
Urine Albumin (Reflex) 1+ A
(Neg - Trace)
10/01/24 13:35
10/01/24 13:35
Vital Signs
Initial and Last Documented VS:
Initial Vital Signs
Temp Pulse Resp BP Pulse Ox
97.4 F 63 18 159/106 99
10/01/24 12:11 10/01/24 12:11 10/01/24 12:11 10/01/24 12:11 10/01/24 12:11
Last Documented Vital Signs
Temp Pulse Resp BP Pulse Ox
97.4 F 57 24 132/70 98
10/01/24 12:11 10/01/24 16:00 10/01/24 15:45 10/01/24 16:00 10/01/24 16:00
<DILSHAD Contreras - Last Filed: 10/01/24 16:40>
MDM/Problems Addressed
MDM/Problems Addressed:
Symptoms are consistent with likely viral syndrome. In addition patient was treated for UTI however no obvious infection in the urine she may continue to complete Macrobid. She was nauseous on arrival was given Zofran and fluids feeling much
better stable vital signs no fevers afebrile here normal white count and unremarkable electrolytes.
She did complain of some mild chest pressure however neg trop x2. No acute findings on EKG. Patient does see Dr. Aponte for A-fib will DC on chest pain hotline.
Will d/c on zofran.
Chronic conditions affecting care:
afib
<DILSHAD Contreras - Last Filed: 10/01/24 16:40>
*Pulse Oximetry
Patient hypoxic: no
*EKG
Interpreted by ED Provider?: Yes
Heart Rate: 61
Rate: normal
Rhythm: sinus
Ischemia: no ischemia
*Critical Care Note
Total Time (30-74mins, 75-104mins- exclusive of procedures): Not Applicable
ED Attending Note
<DILSHAD Contreras - Last Filed: 10/01/24 16:40>
-
Portions of this chart may have been created with voice recognition software.� Occasional wrong word or��sound alike� substitutions may have occurred due to the inherent limitations of voice recognition software.
<Valeriy Arias DO - Last Filed: 10/01/24 15:09>
ED Attending Note
Patient seen and examined by attending physician: Yes
I performed the substantive portion of visit, reviewed & personally made and approve the management plan that is documented in note by myself or LOTUS.: Yes
ED Attending Note:
I have seen and evaluated the patient with a [id number] encounter. I have spoken to the advance practicer provider and involved in the medical history, the physical exam, medical decision making.
Evaluation and management service: agree unless noted differently below.
Results interpretation: agree unless noted differently below.
Focused HPI: 74-year-old female presenting with nausea and dry heaving. Patient now complaining of chest pressure. This has been going on since earlier today. She was recently placed on antibiotic for UTI symptoms.
Physical exam: Sitting bed comfortably. Abdomen soft and nontender.
Medical Decision Making: Patient states her chest pressure is improving with IV fluids. Her symptoms are nonexertional. Doubt ACS. Will obtain second troponin. Urinalysis consistent with mild hematuria. We discussed this could be related to UTI
but discussed having this reevaluated in the outpatient setting
Discharge Plan
Departure
Patient Disposition: Home (Routine Discharge)
Date of Disposition: 10/01/24
Time of Disposition: 16:34
Patient with high blood pressure during this ER visit?: Yes
Condition: Fair
Covid-19: Not Applicable
Discharge Problem:
Chest pressure, Hematuria, Vomiting and diarrhea
Instructions: Diarrhea in teens and adults, Nausea and Vomiting, Adult (DC), Chest Pain CBC Follow Up, BLOOD PRESSURE
Prescriptions:
New
ondansetron 4 mg tablet,disintegrating
4 mg PO Q8H PRN (Reason: nausea and vomiting) Qty: 10 0RF
No Action
levothyroxine 125 MCG tablet
125 mcg PO DAILY
citalopram 20 MG tablet
20 mg PO DAILY
amlodipine 10 MG tablet
10 mg PO DAILY
fluticasone propionate 1 SPRAY spray,suspension
1 spray intranasal DAILYPRN PRN (Reason: allergies)
rosuvastatin 10 MG tablet
10 mg PO QPM
budesonide-formoterol [Symbicort] 80-4.5 mcg/actuation Hfa Aerosol Inhaler
1 inh INHALATION PRN PRN (Reason: allergies)
mupirocin 2 % ointment
1 applic topical BID Qty: 1 0RF
aspirin 325 mg Tablet
325 mg PO DAILY Qty: 1 0RF
docusate sodium 100 mg Capsule
100 mg PO BID Qty: 1 0RF
celecoxib 200 mg Capsule
200 mg PO DAILY Qty: 14 0RF
Rx Instructions:
take with food
sennosides [senna] 8.6 mg Tablet
17.2 mg PO BID Qty: 2 0RF
dexamethasone 4 mg tablet
4 mg PO BID Qty: 6 0RF
Rx Instructions:
take with food
famotidine 20 mg tablet
20 mg PO HS Qty: 30 0RF
hydrocodone-acetaminophen 5-325 mg tablet
1 tab PO Q6H PRN (Reason: 1 tab moderate pain or 2 if severe) Qty: 30 0RF
Rx Instructions:
Dx orthopedic surgery
ongoing therapy
diazepam [Valium] 2 mg tablet
2 mg PO HS Qty: 10 0RF
Rx Instructions:
may take additional tablet if unrelieved with 1 tab
lisinopril 20 MG tablet
40 mg PO DAILY Qty: 1 0RF
Rx Instructions:
hold systolic blood pressure <130 if taking [place]
Eliquis 5 mg tablet
5 mg PO BID Qty: 60 0RF
Referrals:
Don Aponte MD [Active] -
Shana Proctor DO [Family Provider] -
Activity Restrictions/Additional Instructions:
Please return for any worsening symptoms.
You may return at any time if you have further concerns.
Please follow up with your doctor at the first available appointment, preferably this week. In addition you were placed on the chest pain hotline for further evaluation of chest pressure. You should receive a phone call from cardiology office in
the next several days ,if you do not please give them a call.
Please have your urine reevaluated. There was blood in your urine today which could be related to urinary tract infection. If your urine continues to have blood in it, your primary doctor may refer you to a urologist.
A prescription for Zofran was sent to pharmacy take as directed.
Thank you for choosing [facility].
Interventions
Interventions:
*Risk Screen - Suicide Last Done: 10/01/24 12:11
*General Assessment Last Done: 10/01/24 13:15
*Neglect/Abuse Screening Last Done: 10/01/24 12:11
*ED- Fall Risk Assessment Last Done: 10/01/24 13:15
*ED COVID-19 Vaccine History Last Done: 10/01/24 13:15
[id number] Assessment Last Done: 10/01/24 13:49
Discharge Date and Time
Print Language: ITALIAN
[2024-10-01 13:51] LABS: % Basophils 0.4 % (0-2); % Eosinophils 1.1 % (0-6); % Immature Granulocytes 0.2 % (0-0.5); % Lymphocytes 18.3 % (20.5-51.1); % Monocytes 11.1 % (1.7-9.3); % Neutrophils 68.9 % (42.2-75.2); Absolute Eosinophils 0.1 10^3/uL (0-0.7); Absolute Monocytes 0.6 10^3/uL (0.1-0.6); Absolute Neutrophils 3.8 10^3/uL (1.4-6.5); Hematocrit 43.1 % (37.0-47.0); Hemoglobin 14.7 g/dL (12.0-16.0); Mean Corp Hgb Conc. 34.1 g/dL (33.0-37.0); Mean Corpuscular Hgb 28.3 pg (27.0-31.0); Mean Platelet Volume 11.7 fL (7.4-10.4); Nucleated Red Blood Cells % 0 %; Platelet Count 178 10^3/uL (130-400); Red Blood Cell Count 5.19 10^6/uL (4.20-5.40); Red Cell Dist. Width 13.2 % (11.5-14.5); White Blood Cell Count 5.6 10^3/uL (4.8-10.8)
[2024-10-01 13:54] LABS: Urine Albumin 1+ (Neg - Trace); Urine Bilirubin Negative (Negative); Urine Character Clear (Clear); Urine Color Yellow; Urine Glucose Negative (Negative); Urine Ketone 1+ (Negative); Urine Leukocyte 2+ (Negative); Urine Nitrite Negative (Negative); Urine Occult Blood 1+ (Negative); Urine Urobilinogen Negative (Neg - 1+)
[2024-10-01 14:00] VITALS: BP 163/69
[2024-10-01 14:03] LABS: ALT (SGPT) 21 U/L (0-35); AST (SGOT) 25 U/L (14-36); Albumin 4.6 g/dl (3.5-5.0); Alkaline Phosphatase 72 U/L (38-126); Blood Urea Nitrogen 10 mg/dl (7-17); Calcium 9.7 mg/dl (8.4-10.2); Carbon Dioxide 28 mmol/L (22-30); Chloride 105 mmol/L (98-107); Estimated Creatinine Clearance 81 ml/min; Glucose 103 mg/dl (70-99); Potassium 3.9 mmol/L (3.5-5.1); Sodium 137 mmol/L (135-145); Total Bilirubin 0.8 mg/dl (0.2-1.3); Total Protein 6.9 g/dl (6.3-8.2); eGFR > 60.00
[2024-10-01 14:06] LABS: Urine Mucus Moderate; Urine Squamous Cell 16-20 /LPF (Few); Urine Urothelial Cell 0-2 /LPF (FEW)
[2024-10-01 14:07] LABS: Urine Bacteria Few (Negative)
[2024-10-01] MEDS: NSS 1000 IV (14:10)
[2024-10-01] MEDS: ZOFRAN 4 MG IV (14:11)
[2024-10-01] MEDS: TYLENOL 1000 MG PO (14:12)
[2024-10-01 14:15] LABS: COVID-19 Antigen Negative (Negative)
[2024-10-01 15:00] VITALS: BP 163/64
[2024-10-01 15:55] LABS: Troponin I 0.028 ng/ml
[2024-10-01 16:00] VITALS: BP 132/70
== END 2024-10-01 16:58 | disposition home or self-care (01) ==
LOC: EMR 12:04
PROVIDERS: Nurse Practitioner; EMERGENCY PHYSICIAN Student in an Organized Health Care Education/Training Program; FAMILY PHYSICIAN Family Medicine
DX: R07.89 Other chest pain (principal); R31.9 Hematuria, unspecified; R11.2 Nausea with vomiting, unspecified; R19.7 Diarrhea, unspecified; R42 Dizziness and giddiness; R53.1 Weakness; R53.83 Other fatigue; Z11.52 Encounter for screening for COVID-19; I10 Essential (primary) hypertension; E78.00 Pure hypercholesterolemia, unspecified; M79.7 Fibromyalgia; I48.91 Unspecified atrial fibrillation; E03.9 Hypothyroidism, unspecified; Z87.891 Personal history of nicotine dependence; Z90.49 Acquired absence of other specified parts of digestive tract; Z79.01 Long term (current) use of anticoagulants; Z79.82 Long term (current) use of aspirin; Z88.1 Allergy status to other antibiotic agents; Z88.5 Allergy status to narcotic agent; Z88.0 Allergy status to penicillin; Z91.048 Other nonmedicinal substance allergy status
CPT/HCPCS: 99284; 96374; 96361; 80053; 81003; 81015; 84484; 85025; 87086; 87502; 87811; 93005

== ENCOUNTER → 2024-10-15 08:13 | Outpatient (REF) | payer OTHER, SELFPAY | LOC: WDC 08:13 | PROVIDERS: ATTENDING PHYSICIAN Family Medicine | DX: R92.8 Other abnormal and inconclusive findings on diagnostic imaging of breast (principal) | CPT/HCPCS: 76642 ==

== ENCOUNTER → 2024-10-19 08:28 | Outpatient (REF) | payer OTHER, SELFPAY ==
--- NOTE | 2024-10-19 13:28 | OID.BR.INTR ---
[facility] Breast Navigator - Initial
- -
Date of Contact: 10/19/24
Met with patient. Patient given written information on navigator service available at [facility]. Will follow up as needed per protocol.
== END ==
LOC: WDC 08:28
PROVIDERS: ATTENDING PHYSICIAN Family Medicine
DX: N63.14 Unspecified lump in the right breast, lower inner quadrant (principal)
CPT/HCPCS: 88305; 19083; A4648

== ENCOUNTER → 2024-11-21 08:05 | Outpatient (REF) | payer OTHER, SELFPAY | LOC: WDC 08:05 | PROVIDERS: ATTENDING PHYSICIAN Surgery | DX: C50.411 Malignant neoplasm of upper-outer quadrant of right female breast (principal) | CPT/HCPCS: 19285; A4648 ==

== ENCOUNTER 2024-11-23 06:27 | Day surgery (SDC) | payer OTHER, SELFPAY ==
[2024-11-12 08:59] LABS: Hematocrit 42.3 % (37.0-47.0); Hemoglobin 14.0 g/dL (12.0-16.0); Mean Corp Hgb Conc. 33.1 g/dL (33.0-37.0); Mean Corpuscular Volume 85.5 fL (81.0-99.0); Platelet Count 160 10^3/uL (130-400); Red Cell Dist. Width 13.9 % (11.5-14.5)
[2024-11-12 09:55] LABS: ALT (SGPT) 24 U/L (0-35); AST (SGOT) 28 U/L (14-36); Albumin 4.6 g/dl (3.5-5.0); Alkaline Phosphatase 72 U/L (38-126); Blood Urea Nitrogen 12 mg/dl (7-17); Calcium 9.4 mg/dl (8.4-10.2); Carbon Dioxide 28 mmol/L (22-30); Chloride 107 mmol/L (98-107); Glucose 89 mg/dl (70-99); Potassium 4.3 mmol/L (3.5-5.1); Sodium 139 mmol/L (135-145); Total Protein 6.8 g/dl (6.3-8.2); eGFR > 60.00
[2024-11-12 10:15] LABS: Prealbumin (Transthyretin) 27.9 mg/dl (17.6-36.0)
[2024-11-12 10:30] LABS: Vitamin D, 25-OH*** 55.6 ng/mL (30-80)
[2024-11-12 13:56] VITALS: BMI 31.4
--- NOTE | 2024-11-13 13:52 | PTCARENOTE ---
Patients 11/12 ECG abnormal- reviewed by Dr. Silverio- no additional interventions indicated
[2024-11-23 08:40] VITALS: BP 133/72
[2024-11-23 08:41] VITALS: BMI 31.4
[2024-11-23] MEDS: TYLENOL 1000 MG PO (08:42)
[2024-11-23] MEDS: NORMOSOL-R/PLASMALYTE-A 1000 IV (08:55)
[2024-11-23] MEDS: VIBRAMYCIN 270 MG IV (09:54)
[2024-11-23 10:53] VITALS: BP 128/56
[2024-11-23 11:00] VITALS: BP 121/61
--- NOTE | 2024-11-23 11:01 | W.IMMPOSTOP ---
Surgical Immed Post Op Note
-
Primary Surgeon: Lillie
Assisting Surgeon: None
Pre-op Diagnosis: Right breast ca
Post-op Diagnosis: Right breast ca
Procedure Performed: Right localized lumpectomy
Anesthesia Type: TIVA
Specimen / Cultures: Right lumpectomy, margins
Estimated Blood Loss: 4cc
Complications: None
Operative Findings: clip and reflector in specimen
--- NOTE | 2024-11-23 11:02 | OR.RPT ---
Operative Report
Operative Report
Date of procedure: 11/23/2024
Surgeon: Chi
Preoperative diagnosis: Right breast carcinoma
Postoperative diagnosis: Right breast carcinoma
Procedure: Right localized lumpectomy
Patient is a 74-year-old female who had image detected early stage favorable right breast cancer. She met criteria to forego axillary sampling and presents for right localized lumpectomy. The day prior to the procedure she presented to the [place]
imaging center where Gladis air bag builder reflector was placed. On the day of surgery she presented to the same-day surgical services unit. She was prepped and verified site and procedure. DVT and antibiotic prophylaxis were provided. She was taken to the
operating room and in the supine position intravenous sedation was delivered.
The patient's right breast was prepped and draped in usual sterile fashion. An appropriate timeout procedure was performed by all staff members. Local anesthesia in the form of 1% lidocaine plain was instilled into all tissues. A curvilinear
incision overlying the area of Gladis air bag builder signal at the 6 o'clock position of the breast was made sharply with the blade. Skin flaps were elevated with the cautery and using the savvy probe dissection was carried down to the mass which was widely
excised using the electrocautery. Time out of body was noted and the specimen was oriented for the pathologist. Specimen radiography confirmed the presence of clip and reflector within it. Additional margins were harvested from the posterior,
medial, superior, lateral, inferior, and anterior dimensions. These were oriented as well.
Hemostasis was maintained with the cautery. Hemoclips were placed in the resection cavity and Marcaine 0.5% plain was applied. The wound was closed using simple interrupted 3-0 plain on deep intermediate and subcutaneous tissue and skin was closed
with a running subcuticular 4-0 Monocryl. Surgical glue and a sterile compressive dressing were applied. All sponge needle and instrument counts were correct and the patient was transferred to the recovery room in stable condition
([id number])
[2024-11-23 11:15] VITALS: BP 121/59
== END 2024-11-23 12:05 | disposition home or self-care (01) ==
LOC: SDS 06:27
PROVIDERS: ATTENDING PHYSICIAN Surgery; FAMILY PHYSICIAN Family Medicine
DX: C50.911 Malignant neoplasm of unspecified site of right female breast (principal); N60.31 Fibrosclerosis of right breast
CPT/HCPCS: 19301; 36415; 76098; 80053; 82306; 84134; 85027; 88305; 88307; 93005; L8000

== ENCOUNTER → 2025-03-11 09:58 | Outpatient (REF) | payer OTHER, SELFPAY | LOC: WDC 09:58 | PROVIDERS: ATTENDING PHYSICIAN Family Medicine Geriatric Medicine; FAMILY PHYSICIAN Family Medicine | DX: R22.31 Localized swelling, mass and lump, right upper limb (principal) | CPT/HCPCS: 76642; 77061; 77065 ==

== ENCOUNTER → 2025-04-01 09:34 | Outpatient (REF) | payer OTHER, SELFPAY | LOC: HWRAD 09:34 | PROVIDERS: ATTENDING PHYSICIAN Family Medicine | DX: M81.0 Age-related osteoporosis without current pathological fracture (principal) | CPT/HCPCS: 77080 ==